=== PATIENT | male | born 1970 | race Caucasian/White ===

== ENCOUNTER 2016-05-28 11:32 | Emergency (ER) | payer MEDICAID, OTHER ==
[2016-05-28 11:41] VITALS: BP 130/78; PULSE 61; RESP 18; TEMP 97.9; O2SAT 98
--- NOTE | 2016-05-28 12:55 | UCPHY ---
H & P Time Seen by Provider: 05/28/16 12:16 Patient Type: New HPI/ROS: CHIEF COMPLAINT: Rash HISTORY OF PRESENT ILLNESS: This is a 46-year-old male presenting with complaints of a rash. About 2 weeks ago the patient started a clean eating diet which he also involved a colonic wash. Shortly thereafter he noticed he had a rash which she thought was a Radha rash on his genital region. Rash was erythematous. Patient used topical cream which seemed to improve his rash. He then went to [place]. On return 4 days ago he began to notice widespread rash on his legs, groin, chest, abdomen, and hands. He also noticed his lips to be red, slightly swollen, and sensitive. No chest pain, difficulty swallowing, vomiting, no diarrhea, no fever. Rash is scaling, minimally itchy. No history of eyelid swelling, difficulty swallowing, or breathing. REVIEW OF SYSTEMS: Aside from elements discussed in the HPI, a comprehensive 10-point review of systems was reviewed and is negative. PAST MEDICAL HISTORY: Patient denies. SOCIAL HISTORY: Nonsmoker. VITAL SIGNS: see nurse's notes. GENERAL: Well-developed, well-nourished, in no acute distress. HEENT: pupils equal round react was like, conjunctiva clear, extraocular movements intact. Oropharynx: Lips are swollen, erythematous. No vesicles noted in the oral mucosa. No blistering. No petechiae on the hard palate. Uvula is midline, no drooling. Moist mucous membranes. Neck: supple, FROM. LUNGS: Clear to auscultation bilaterally, no wheezes, rhonchi or rales. CARDIAC: Regular rate and rhythm, no rubs, murmurs or gallops. ABDOMEN: Soft, nontender, nondistended, bowel sounds normal. : Scrotum, perineum, and penis are diffusely erythematous. Nontender, well demarcated line, no blistering, no swelling. Patient states that the prior skin had sloughed off and that this was all new skin which was covering the perineum. No lower abdominal tenderness to palpation. No crepitus. BACK: No CVA tenderness. No vertebral tenderness. EXTREMITIES: No edema, FROM. NEURO: Alert and oriented, grossly nonfocal. SKIN: Patches of erythematous, scaly rash on the upper thighs. Macular papular areas of rash on the dorsum of the hands. Scattered lesions, macular papular, slight amount of scaling, present on the trunk and back. Smoking Status: Never smoked Constitutional: Initial Vital Signs Temperature (C) 36.6 C 05/28/16 11:36 Heart Rate 61 05/28/16 11:36 Respiratory Rate 18 05/28/16 11:36 Blood Pressure 130/78 H 05/28/16 11:36 O2 Sat (%) 98 05/28/16 11:36 O2 Delivery Mode Room Air Allergies/Adverse Reactions: No Known Allergies Allergy (Unverified 05/28/16 11:41) Home Medications: Medication Instructions Recorded Fluconazole [Diflucan (*)] 100 mg PO DAILY #7 tab 05/28/16 HYDROCORTISONE VALERATE [WESTCORT] 1 gm TP TID #1 cream.gm. 05/28/16 Medical Decision Making ED Course/Re-evaluation: This is a 46-year-old male with a diffuse skin rash. Overall the patient looks quite well. He is not toxic. He has not had a fever, vomiting, headache, confusion, neck pain, or sore throat. Rash on his lower extremities appears very much like tinea corporis. He also appears to have patches of tinea on the dorsal aspect of both hands. However, the patient has an erythematous perineum with well demarcated edges. He also has some swelling of his lips. His course was discussed with Dr. Perez from [facility]. [place] not to represent for fouriers gangrene, meningitis, deep space infection, necrotizing fasciitis, or Vázquez-Wilian. Suspect erythematous skin on the perineum may be related to prior sloughing of skin and new growth. Patient has no has difficulty swallowing or speaking to suggest anaphylaxis. Patient was placed on Diflucan to treat for fungal infection as well as topical ketoconazole. Dr. Perez also suggested Westcort hydrocortisone cream to be used in the perineum. Differential Diagnosis: Differential diagnosis of the patient's rash was considered including but not limited to allergic reaction, urticaria, viral exanthem, erythema multiforme, Vázquez-Wilian syndrome, petechial rash, scarlatiniform rash, HUS, cellulitis, or purpuric rash. Departure - Departure Disposition: Home, Routine, Self-Care Clinical Impression: Radha infection of genital region, Tinea corporis Condition: Good Instructions: Fluconazole (By mouth), Tinea Corporis (ED) Additional Instructions: I discussed your case with Dr. Brandan Perez with [facility]. 1. Please begin taking fluconazole 100 mg by mouth daily for the next 7 days. This is a treatment for any Radha infection. 2. Please obtain hydrocortisone cream and apply to the groin 2 to 3 times a day to help with swelling and redness. 3. Please obtain over the counter ketoconazole cream for topical yeast infections. Please follow up with [facility] within the next 2-3 days and be seen sooner if you are worsening. Referrals: NONE *PRIMARY CARE P,. [Primary Care Provider] - As per Instructions Prescriptions: Fluconazole [Diflucan (*)] 100 mg PO DAILY #7 tab HYDROCORTISONE VALERATE [WESTCORT] 1 gm TP TID #1 cream.gm. - PQRS PQRS Measurement: Not applicable
== END 2016-05-28 13:23 | disposition home or self-care (01) ==
LOC: CED 11:32
DX: E01.0 Iodine-deficiency related diffuse (endemic) goiter (principal)
CPT/HCPCS: G0463-PO